=== PATIENT | female | born 1970 | race Caucasian/White ===

== ENCOUNTER 2020-06-22 06:54 | Outpatient (NON) | payer OTHER, SELFPAY ==
[2020-06-23 13:08] LABS: SARS-CoV-2 RNA PCR Negative
== END 2020-06-22 06:55 ==
PROVIDERS: PCP Family Medicine; Visit Provider Nurse Practitioner Family
DX: Z20.828 Contact with and (suspected) exposure to other viral communicable diseases (principal)
CPT/HCPCS: 87635; C9803; U0003

== ENCOUNTER 2021-10-06 13:59 | Outpatient (CLI) | payer OTHER, SELFPAY ==
--- NOTE | ~2021-10-06 | XR_ITS ---
XR chest 2V DATE: 10/06/2021 14:50 INDICATION: Shortness of breath TECHNIQUE: PA and lateral views COMPARISON: None FINDINGS: Normal heart size. No hilar or mediastinal enlargement. There is discoid atelectasis or sca rring at the right lung base. No pulmonary infiltrate or consolidation, pleural effusion or pulmonary vascular congestion or pneumothorax. Levoscoliosis of the upper thoracic spine and dextroscoliosis of the lower thoracic spine. Status post cholecystectomy. IMPRESSION: No active cardiopulmonary disease Prominent scoliosis Status post cholecystectomy Reviewed, dictated and finalized at location B. ING CAREGIVER
--- NOTE | 2021-10-06 15:28 | WPDPFTINT ---
PFT Procedure Performed PFT Procedure Performed Spirometry with Pre/Post Bronchodilator Plethysmography (Lung Vol) Diffusing Cap (DLCO) Flow Vol Loop PFT Interpretation This is a pulmonary function test with pre and post-bronchodilator spirometry, plethysmography and diffusing capacity. The test was performed and results interpreted in accordance with the 2019 and 2005 ATS/ERS Task Force guidelines respectively using the Global Lung Function Initiative-2012 reference equations. Patient demonstrated good effort and cooperation. Reproducibility criteria were met. The quality of the pre bronchodilator spirometry maneuver was Grade A and post bronchodilator spirometry maneuver was Grade A. Findings: Spirometry:There is decreased maximal expiratory airflow at all lung volumes with concave expiratory flow tracing. The contour the inspiratory flow tracing is normal. The pre bronchodilator FVC Is 3.47 L, 100% predicted. The pre bronchodilator FEV1 is 2.36 L, 85% predicted. The pre bronchodilator FEV1:FVC ratio 68%. The post bronchodilator FVC is 3.70 L, representing a 6% increase. The post bronchodilator FEV1 is 2.62 L, representing an 11% increase. The post bronchodilator FEV1:FVC ratio is 71%. Plethysmography: The total lung capacity is 6.49 L, 125% predicted. The functional residual capacity is 3.83 L, 131% predicted. The residual volume is 2.83 L, 149% predicted. Diffusing capacity: The DLCO unadjusted for hemoglobin is 19.2, 84% predicted. The diffusing capacity adjusted for alveolar volume is 3.68, 82% predicted. Impression: There is a mild obstructive abnormality with a normal FEV1 and without significant improvement after inhaling a single dose of albuterol. The increase in residual volume is consistent with air trapping from an obstructive abnormality. Hyperinflation is present is demonstrated by the increase in total lung capacity and is consistent with an obstructive abnormality. The diffusing capacity is normal. unadjusted for hemoglobin is moderately decreased and normalizes when adjusted for alveolar volume. Impression: There is a moderately severe restrictive ventilatory abnormality. The spirometry is normal without evidence of an obstructive abnormality. There is no significant improvement after inhaling a single dose of albuterol. The diffusing capacity unadjusted for hemoglobin is moderately decreased and normalizes when adjusted for alveolar volume. There are no prior studies for comparison
== END 2021-10-06 14:00 | disposition home or self-care (01) ==
PROVIDERS: PCP Family Medicine; Visit Provider Nurse Practitioner Family
DX: J45.909 Unspecified asthma, uncomplicated (principal); R06.02 Shortness of breath; R05.9 Cough, unspecified; Z90.49 Acquired absence of other specified parts of digestive tract; M41.9 Scoliosis, unspecified; R94.2 Abnormal results of pulmonary function studies
CPT/HCPCS: 71046; 94060; 94726; 94729

== ENCOUNTER 2022-09-03 14:47 | Outpatient (CLI) | payer OTHER, SELFPAY ==
--- NOTE | ~2022-09-03 | XR_ITS ---
EXAMINATION: XR chest 2V 09/03/2022 15:00 INDICATION: Moderate persistent asthma. PROCEDURE: 2 view chest COMPARISON: 10/06/2021 FINDINGS: The lungs are clear. The cardiomediastinal silhouette is within normal limits. There are no pleural effusions. There is no pneumothorax suspected. There is scoliosis. IMPRESSION: 1: NO ACUTE CARDIOPULMONARY DISEASE. Reviewed, dictated and finalized at location A. ENT PLANT TREATER
== END 2022-09-03 14:48 | disposition home or self-care (01) ==
PROVIDERS: PCP Family Medicine; Visit Provider Physician Assistant
DX: R05.9 Cough, unspecified (principal); J45.40 Moderate persistent asthma, uncomplicated
CPT/HCPCS: 71046

== ENCOUNTER 2023-06-28 09:30 | Outpatient (CLI) | payer OTHER, SELFPAY ==
--- NOTE | ~2023-06-28 | XR_ITS ---
Clinical Indication: Cough PA and lateral views of the chest: Comparison: 09/03/2022 Findings: The lungs are clear, without evidence of focal consolidation or pleural effusion. Cardiome diastinal silhouette is within normal limits. Bones and soft tissues are unremarkable. Impression: Normal chest. Reviewed, dictated and finalized at location . DAMAGE TRAINEE Impression: Normal chest.
[2023-06-28 11:09] LABS: Influenza A QL RT-PCR Negative (Negative); Influenza B QL RT-PCR Negative (Negative); SARS-CoV-2 RNA PCR Negative (Negative)
== END 2023-06-28 09:31 | disposition home or self-care (01) ==
LOC: ANHIMG 09:33
PROVIDERS: PCP Family Medicine; Visit Provider Nurse Practitioner Family
DX: R05.9 Cough, unspecified (principal); R06.00 Dyspnea, unspecified
CPT/HCPCS: 71046; 87636

== ENCOUNTER 2024-04-08 15:51 | Outpatient (CLI) | payer OTHER, SELFPAY ==
--- NOTE | ~2024-04-08 | XR_ITS ---
EXAMINATION: XR chest 2V 04/08/2024 16:06 INDICATION: Dyspnea PROCEDURE: 2 view chest COMPARISON: 06/28/2023 FINDINGS: The lungs are clear. The cardiomediastinal silhouette is within normal limits. There are no pleural effusions. There is no pneumothorax suspected. There is scoliosis. IMPRESSION: 1: NO ACUTE CARDIOPULMONARY DISEASE. Reviewed, dictated and finalized at location B.
[2024-04-08 16:59] LABS: Influenza A QL RT-PCR Negative (Negative); Influenza B QL RT-PCR Negative (Negative); RSV RNA, RT-PCR Negative (Negative); SARS-CoV-2 RNA PCR Positive (Negative)
== END 2024-04-08 15:52 | disposition home or self-care (01) ==
PROVIDERS: PCP Family Medicine; Visit Provider Nurse Practitioner Family
DX: R05.9 Cough, unspecified (principal); R06.09 Other forms of dyspnea; R06.00 Dyspnea, unspecified; U07.1 COVID-19
CPT/HCPCS: 71046; 87637

== ENCOUNTER 2024-11-25 14:36 | Outpatient (CLI) | payer OTHER, SELFPAY ==
--- OUTSIDE RECORDS SUMMARY | 2024-11-25 16:15 | XMS_ITS | Data Portability ---
Author Organization [facility] Address [address] [place] [place] [address] Care Team Providers Care Laundry Pricing Clerk Name Role Phone CRUZ DESAI Manager Of Production Unavailable Assessment No assessment recorded. Plan of Treatment Reminders Order Date Submit Date Provider Last Modified By Organization Details Last Modified Time Details Appointments None recorded. Lab TSH + free T4, serum 2021 022 [facility] [address] [place], [place] [address]marily Rolin, [address], [place], [address], 08:19:34 prolactin , serum 2021 022 TUNICA ANTONINO, [address] [place] [address], [place] [address], [place], [address], 08:19:36 lh + FSH, serum 2021 022 TUNICA ANTONINO, [address] [place] [address], [place] [address], [place], [address], 08:19:35 estradiol , serum 2021 022 [facility]ICA ANTONINO, [facility] Orlin, [address], [place], [address], 08:19:36 cytology report, thin prep, smear or scraping, cervical or vaginal 2021 022 TUNICA ANTONINO, [address] [place] [address] [address], [address], [place], [address], 2 15:09:08 CT + NG + TV, DNA, urine/swa b 2018 019 [facility], [address], [address], [place], [address], 9 06:20:43 CT + NG + TV, DNA, urine/swa b 2016 017 [facility] ([facility] [address] [place], [address], 7 08:30:00 Referral None recorded. Procedures None recorded. Surgeries None recorded. Imaging MAMMO, screening , bilateral [address] [facility] Patient Access Centralized Scheduling, Centralized Scheduling, [address] [place], [address], 5 04:19:43 MAMMO, screening , digital, bilateral [address] Patient Access Centralized Scheduling, Centralized Scheduling, [address] [place], [address], 2 15:33:45 MAMMO, screening , digital, bilateral - birad 1 in SEP 20172018 019 ALBERTA Not available 9 09:02:03 MAMMO, screening , digital, bilateral 2016 017 [facility] Not available 8 02:37:45 Medication Orders nystatin 100,000 unit/gram topical powder 2021 [facility], [facility] [place], [address], 5 11:24:36 NuvaRing 0.12 mg-0.015 mg/24 hr vaginal 2018 019 [email or web address] [facility], [address] [facility], [place], [address], 5 11:24:29 fluoxetin e 40 mg capsule 2018 019 INTERFACE [facility], [address] [place], [address], 9 16:47:11 NuvaRing 0.12 mg-0.015 mg/24 hr vaginal 2016 017 [email or web address] Not available 5 11:24:29 Patient TargetsNo targets recorded. 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 last exam 1-2 years. no bleeding, no pain, no discharge. PAP history = no prior abnormal . pap neg, hpv neg in 2015 STD history = no prior Menses = monthly, regular Contraception = nuvaring Mammogram = normal in 2016 EXAM vital - normal gen - no distress neck - no mass breast no exam chest - rrr cta abd - soft nontender back - no pain vulva - no lesions, no discharge vagina - no lesions, no discharge cervix - normal, nontender bimanual - no mass, nontender PLAN annual jewelry polisher exam PAP not due at this time STD cervix swab collected mammogram - screening requested recommend calcium/vitamin D FLU VACCINE - given today RX renew NUVARING LABS none follow up annual jewelry polisher exam DO migdalia MARCELO Not available 08/05/2017 16:52:28 01/23/2018 [id number] pt used tampon today , current menses, went swimming cannot recall removing tampon, cannot detect in vagina pt worried tampon may be retained no pain, no discharge, no odor EXAM normal vitals general - no distress abd - soft nontender vulva - no lesions, no discharge vagina - no lesions, no discharge, no bleeding. 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 last exam 2 years. no bleeding, no pain, no discharge. PAP history = no prior abnormal . pap neg, hpv neg in 2016 STD history = no prior Menses = monthly, regular Contraception = nuvaring Mammogram = normal in 2016 discuss Nuvaring use for contraception and menses regulation pt age 48 , menses regular and short with Nuvaring discuss consideration to discontinue patient desires to continue at this time for both contraception and menses regulation occasional mild hot flushes discuss rx Fluoxetine Started several years ago for depression with marital stressors currently denies any significant social stressors or depression symptoms discuss consideration to stop and follow for symptoms discuss options to taper with half dose or every other day and monitor refill rx given at this time. EXAM vital - normal gen - no distress neck - no mass breast no pain, no mass, no lesions. patient reports mild tender to upper outer left - no mass abd - soft nontender back - no pain vulva - no lesions, no discharge vagina - no lesions, no discharge cervix - normal, nontender bimanual - no mass, nontender PLAN annual jewelry polisher exam PAP not due at this time STD cervix swab collected mammogram - screening requested recommend calcium/vitamin D FLU VACCINE - none RX renew NUVARING LABS none follow up annual jewelry polisher exam DO migdalia MARCELO Not available 11/24/2018 16:52:37 03/30/2022 [id number] A healthy lifestyle: care instructions [email or web address] Not available 03/31/2022 11:55:07 09/21/2024 [id number] learning about menopause [email or web address] Not available 09/21/2024 12:20:00 hot flashes duri ng menopause: care instructions [email or web address] Not available 09/21/2024 12:20:00 Reason for Referral None Reported. Results Created Date Observation Date Name Description Value Unit Range Abnormal Flag Note LastModifiedBy Organization Detail LastModifiedTime 08/05/20 17 08/07/2017 CT + NG + TV, DNA, urine /swab chlamydia by MG Negati ve negati ve Not Available [facility] ([facility]) [address] [facility], [place], [address], 08/07/2017 08:30:00 08/05/20 17 08/07/2017 CT + NG + TV, DNA, urine /swab gonococcus by MG Negati ve negati ve Not Available [facility] ([facility]) [address] [place], [address], 08/07/2017 08:30:00 08/05/20 17 08/07/2017 CT + NG + TV, DNA, urine /swab trich vag by MG Negati ve negati ve Not Available [facility] ([facility]) [address] [place], [address], 08/07/2017 08:30:00 11/25/19 19 11/26/2018 CT + NG + TV, DNA, urine /swab chlamydia by MG Negati ve negati ve Not Available [facility] ([facility]) [address] [place] [address], [address], 11/26/2018 06:20:43 11/25/19 19 11/26/2018 CT + NG + TV, DNA, urine /swab gonococcus by MG Negati ve negati ve Not Available [facility] ([facility]) [address] [place], [address], 11/26/2018 06:20:43 11/25/19 19 11/26/2018 CT + NG + TV, DNA, urine /swab trich vag by MG Negati ve negati ve Not Available [facility] ([facility]) [address] [place], [address], 11/26/2018 06:20:43 03/30/20 22 03/31/2022 TSH+F REE T4 TSH 10.400 uIU/m L 0.450- 4.500 above high normal Not Available [facility] ([facility]) [address] [place], [address], 03/31/2022 08:19:34 03/30/20 22 03/31/2022 TSH+F REE T4 T4,free(dire ct) 0.85 NG/dL 0.82-1 .77 Not Available [facility] ([facility]) [address] [place], [address], 03/31/2022 08:19:34 03/30/20 22 03/31/2022 FSH AND LH LH 9.7 mIU/m L Adult Femal e: Folli cular phase 2.4 - 12.6 Ovula tion phase 14.0 - 95.6 Lutea l phase 1.0 - 11.4 Postm enopa usal 7.7 - 58.5 Not Available [facility] ([facility]) [address] [place], [address], 03/31/2022 08:19:35 03/30/2003/31/2022 FSH AND LH FSH 11.8 mIU/m L Adult Femal e: Folli cular phase 3.5 - 12.5 Ovula tion phase 4.7 - 21.5 Lutea l phase 1.7 - 7.7 Postm enopa usal 25.8 - 134.8 Not Available [facility] ([facility]) [address] [place], [address], 03/31/2022 08:19:35 03/30/2003/31/2022 PROLA CTIN prolactin 32.1 NG/mL 4.8-23 .3 above high normal Not Available [facility] ([facility]) [address] [place], [address], 03/31/2022 08:19:35 03/30/2003/31/2022 ESTRA DIOL estradiol 162.0 pg/mL Adult Femal e: Folli cular phase 12.5 - 166.0 Ovula tion phase 85.8 - 498.0 Lutea l phase 43.8 - 211.0 Postm enopa usal <6.0 - 54.7 Pregn henny 1st trime ster 215.0 - >4300 .0 Radha ECLIA metho dolog y Not Available [facility] ([facility]) [address] [place], [address], 03/31/2022 08:19:36 03/30/20 22 04/03/2022 IGP, APTIM A HPV, RFX 16/18 ,45 HPV aptima Negati ve negati ve This nucle ic acid ampli ficat ion test detec ts fourt een high- risk HPV types (16,1 8,31, 33,35 ,39,4 5,51, 52,56 ,58,5 9,66, 68) witho ut diffe renti ation . Not Available [facility] ([facility]) [address] [facility], [place], [address], 04/04/2022 15:09:08 03/30/20 22 04/04/2022 IGP, APTIM A HPV, RFX 16/18 ,45 diagnosis: Commen t NEGAT GRISEL FOR INTRA EPITH ELIAL LESIO N OR MALIG VONDA . SPECI MEN REPRO CESSE D FOR INTER PRETA TION USING GLACI AL ACETI C ACID (GAA) . Not Available [facility] ([facility]) [address] [facility], [place], [address], 04/04/2022 15:09:08 03/30/20 22 04/04/2022 IGP, APTIM A HPV, RFX 16/18 ,45 specimen adequacy: Commen t Satis facto ry for evalu ation . Endoc ervic al and/o r squam ous metap lasti c cells (endo cervi pop compo nent) are prese nt. Areas of parti ally obscu ring blood are prese nt. Not Available [facility] ([facility]) [address] [facility], [place], [address], 04/04/2022 15:09:08 03/30/20 22 04/04/2022 IGP, APTIM A HPV, RFX 16/18 ,45 clinician provided ICD10: Commen t Z12.4 Not Available [facility] ([facility]) [address] [facility], [place], [address], 04/04/2022 15:09:08 03/30/20 22 04/04/2022 IGP, APTIM A HPV, RFX 16/18 ,45 performed by: Adri Hill (ASCP ) Not Available [facility] ([facility]) [address] [place], [address], 04/04/2022 15:09:08 03/30/20 22 04/04/2022 IGP, APTIM A HPV, RFX 16/18 ,45 . . Not Available [facility] ([facility]) [address] [place], [address], 04/04/2022 15:09:08 03/30/20 22 04/04/2022 IGP, APTIM A HPV, RFX 16/18 ,45 note: Thu maldonado The Pap smear is a scree shaniqua test desig flaco to aid in the detec tion of soniya ligna nt and malig nant condi tions of the uteri ne cervi x. It is not a diagn ostic proce dure and shoul d not be used as the sole means of detec ting cervi pop cance r. Both false -posi tive and false -nega tive repor ts do occur . Not Available [facility] ([facility]) [address] [facility], [place], [address], 04/04/2022 15:09:08 03/30/20 22 04/04/2022 IGP, APTIM A HPV, RFX 16/18 ,45 test methodology: Thu maldonado This liqui d based ThinP rep(R ) pap test was scree flaco with the use of an image guide joon jackson Not Available [facility] ([facility]) [address] [place], [address], 04/04/2022 15:09:08 09/30/19 18 09/24/2017 MAMMO , gladys mcgovern, digit al, bilat eral No observ ation record ed. [email or web address] Not Available 2017 16:00:17 10/10/19 18 09/24/2017 MAMMO , scree shaniqua, digit al, bilat eral No observ ation record ed. [email or web address] Not Available 2017 17:42:50 12/09/19 19 12/06/2018 MAMMO , scree shaniqua, digit al, bilat eral No observ ation record ed. [email or web address] Not Available 2018 12:03:42 09/21/19 25 10/21/2023 MAMMO , scree shaniqua, bilat eral No observ ation record ed. [email or web address] Not Available 09/21 11:59:12 09/21/19 25 10/28/2023 CT, abdom en + pelvi s, w/ contr ast No observ ation record ed. [email or web address] Not Available 09/21 11:59:24 Result Notes None recorded. 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 Procedures Surgical History Date Name Laterality Status Provider Name and Address Organization Details Recorded Time 8 Most Recent Mammogram completed Jenae Cummings [place] 01/23/2018 17:20:28 6 Date of Last Pap Smear completed Alix Maldonado MA [place] [facility] 08/05/2017 16:13:47 Imaging Results Imaging Date Name Status LastModified by [facility] Details LastModified Time 09/24/2017 MAMMO, screening, digital, bilateral completed [email or web address] Information not available 09/30/2017 16:00:17 09/24/2017 MAMMO, screening, digital, bilateral completed Bruin Brake [email or web address] Information not available 10/10/2017 17:42:50 12/06/2018 MAMMO, screening, digital, bilateral completed Bruin Brake Cables[facility] Information not available 12/09/2018 12:03:42 10/21/2023 MAMMO, screening, bilateral completed [email or web address] Information not available 09/21/2024 11:59:12 10/28/2023 CT, abdomen + pelvis, w/ contrast completed [email or web address] Information not available 09/21/2024 11:59:24 Procedure Notes None recorded. Medical Equipment None Reported. Allergies No known drug allergies Medications Name Sig Start Date Stop Date Status Note LastModified by Organization Details LastModified Time fluoxetine 40 mg capsule TAKE 1 CAPSULE DAILY active Not Available Not Available No t Available amoxicillin 500 mg capsule TAKE 1 CAPSULE BY MOUTH EVERY 12 HOURS 09/21 completed Not Available Not Available Not Available prednisone 10 mg tablet PLEASE SEE ATTACHED FOR DETAILED DIRECTION S active Not Available Not Available No t Available atorvastati n 10 mg tablet 09/21 completed Not Available Not Available Not Available azithromyci n 250 mg tablet 01/23 completed Not Available Not Available Not Available indapamide 2.5 mg tablet 11/24 completed Not Available Not Available Not Available prednisone 20 mg tablet TAKE 1 TABLET BY MOUTH TWICE A DAY FOR 5 DAYS 09/21 completed Not Available Not Available Not Available potassium chloride ER 20 mEq tablet,exte nded release(par t/cryst) active Not Available Not Available Not Available famotidine 20 mg tablet TAKE 1 TABLET BY MOUTH TWICE A DAY 09/21 completed Not Available Not Available Not Available ciprofloxac in 0.3 % eye drops 01/23 completed Not Available Not Available Not Available benzonatate 100 mg capsule 11/24 completed Not Available Not Available Not Available doxycycline monohydrate 100 mg capsule TAKE 1 CAPSULE BY MOUTH EVERY 12 HOURS 09/21 completed Not Available Not Available Not Available oseltamivir 75 mg capsule 11/24 completed Not Available Not Available Not Available lisinopril 10 mg tablet active Not Available Not Available Not Available prednisone 50 mg tablet 11/24 completed Not Available Not Available Not Available Synthroid 75 mcg tablet active Not Available Not Available Not Available indapamide 1.25 mg tablet 09/21 completed Not Available Not Available Not Available Synthroid 50 mcg tablet 09/21 completed Not Available Not Available Not Available codeine 10 mg-guaifene sin 100 mg/5 mL oral liquid TAKE 5 ML BY MOUTH ONCE 09/21 completed Not Available Not Available Not Available epinephrine 0.3 mg/0.3 mL injection, auto-inject or INJECT 1 PEN DIRECTED INTRAMUSC ULARLY ONCE FOR ANAPHYLAX IS active Not Available Not Available No t Available levofloxaci n 750 mg tablet 11/24 completed Not Available Not Available Not Available methylpredn isolone 4 mg tablets in a dose pack 11/24 completed Not Available Not Available Not Available hydrocodone 10 mg-chlorphe niramine 8 mg/5 mL oral susp extend.rel 12hr 11/24 completed Not Available Not Available Not Available albuterol sulfate HFA 90 mcg/actuati on aerosol inhaler INHALE 1 PUFF EVERY 4 HOURS NEEDED FOR SHORTNESS OF BREATH OR WHEEZING active Not Available Not Available No t Available ondansetron 4 mg disintegrat ing tablet TAKE 1 TABLET BY MOUTH EVERY 8 HOURS NEEDED FOR NAUSEA AND VOMITING 09/21 completed Not Available Not Available Not Available cefdinir 300 mg capsule TAKE 1 CAPSULE (300 MG) BY MOUTH EVERY 12 HOURS FOR 10 DAYS 09/21 completed Not Available Not Available Not Available fluoxetine 20 mg capsule 09/21 completed Not Available Not Available Not Available fluticasone propionate 50 mcg/actuati on nasal spray,suspe nsion active Not Available Not Available Not Available NuvaRing 0.12 mg-0.015 mg/24 hr vaginal INSERT 1 RING VAGINALLY EVERY MONTH 09/21 completed Not Available Not Available Not Available ciprofloxac in 0.3 %-dexametha sone 0.1 % ear drops,suspe nsion INSTILL 4 DROPS INTO RIGHT EAR TWICE A DAY FOR 7 DAYS 09/21 completed Not Available Not Available Not Available Nyamyc 100,000 unit/gram topical powder APPLY TO THE AFFECTED AREA(S) BY TOPICAL ROUTE 2 TIMES PER DAY 09/21 completed Not Available Not Available Not Available Symbicort 160 mcg-4.5 mcg/actuati on HFA aerosol inhaler active Not Available Not Available Not Available Durezol 0.05 % eye drops 11/24 completed Not Available Not Available Not Available Ilevro 0.3 % eye drops,suspe nsion 11/24 completed Not Available Not Available Not Available ProAir RespiClick 90 mcg/actuati on breath activated active Not Available Not Available No t Available Vitals Date Recorded Body weight Systolic blood pressure Diastolic blood pressure Provider Name and Address Organization Details Last Updated DateTime 08/05/2017 92007.52 g 130 mm[Hg] 86 mm[Hg] Alix Maldonado MA [facility] 08/05/2017 16:15:23 Date Recorded Body height Body mass index (BMI) Body weight Systolic blood pressure Diastolic blood pressure Provider Name and Address Organization Details Last Updated DateTime 01/23/2018 165.1 cm 27.6 kg/m2 95916.33 g 158 mm[Hg] 100 mm[Hg] Jenae Cummings MA [facility] 8 17:21:52 Date Recorded Body height Body mass index (BMI) Body weight Systolic blood pressure Diastolic blood pressure Provider Name and Address Organization Details Last Updated DateTime 11/24/2018 165.1 cm 27.5 kg/m2 45773.17 g 132 mm[Hg] 84 mm[Hg] Solange Montgomery LPN [facility] 9 16:13:52 Date Recorded Body height Body mass index (BMI) Body weight Systolic blood pressure Diastolic blood pressure Provider Name and Address Organization Details Last Updated DateTime 03/30/2022 165.1 cm 27.7 kg/m2 82128.52 g 132 mm[Hg] 74 mm[Hg] Iman Hough MA [facility] 2 15:14:55 Date Recorded Body height Body mass index (BMI) Body weight Heart rate Systolic blood pressure Diastolic blood pressure Provider Name and Address Organization Details Last Updated DateTime 5 165.1 cm 28.5 kg/m2 14839 g 79 /min 148 mm[Hg] 94 mm[Hg] Iman Hough MA [facility] 5 11:29:35 Social History Question Answer Notes LastModified by Organizat ion Details LastModified Time Tobacco Smoking Status Never Smoker Maddie patel [facility] 10/13/2015 16:13:09 What Is Your Level Of Alcohol Consumption? Occasional [email or web address] Information not available 10/13/2015 Are You Blind Or Do You Have Difficulty Seeing? No Information not available 03/30/2022 Is Blood Transfusion Acceptable In An Emergency? Yes [email or web address] Information not available 10/13/2015 What Is Your Level Of Caffeine Consumption? Heavy [email or web address] Information not available 10/13/2015 How Much Tobacco Do You Chew? None [email or web address] Information not available 10/13/2015 Are You Currently Employed? Yes [email or web address] Information not available 10/13/2015 Are You Deaf Or Do You Have Serious Difficulty Hearing? No Information not available 03/30/2022 What Type Of Diet Are You Following? REGULAR [email or web address] Information not available 10/13/2015 Which Illicit Or Recreational Drugs Have You Used? None [email or web address] Information not available 10/13/2015 Do You Or Have You Ever Used E-cigarettes Or Vape? 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 Alone [email or web address] Information not available 10/13/2015 What Was The Date Of Your Most Recent Tobacco Screening? 09/21/2024 Information not available 09/21/2024 How Many Children Do You Have? 3 [email or web address] Information not available 10/13/2015 Performs Monthly Self-breast Exam? Yes [email or web address] Information no t available 10/13/2015 Do You Use Protection During Sex? No Information not available 10/13/2015 What Is Your Relationship Status? [email or web address] Information not available 10/13/2015 Do You Use Your Seat Belt Or Car Seat Routinely? Yes Information not available 03/30/2022 Seat Belts Used Routinely Yes Information not available 10/13/2015 Are You Sexually Active? Yes [email or web address] Information not available 10/13/2015 Do You Have Smoke And Carbon Monoxide Detectors In Your Home? Yes Information not available 03/30/2022 Are You Passively Exposed To Smoke? Yes Information no t available 03/30/2022 Do You Or Have You Ever Used Smokeless Tobacco? Never Used Smokeless Tobacco Information not available 09/21/2024 How Much Tobacco Do You Smoke? No [email or web address] Information not available 10/13/2015 General Stress Level Low [email or web address] Information not available 10/13/2015 Do You Use Any Illicit Or Recreational Drugs? No Information not available 03/30/2022 Do You Use Sunscreen Routinely? Yes [email or web address] Information not available 10/13/2015 Has Tobacco Cessation Counseling Been Provided? Yes Information not available 03/30/2022 On What Date Was Tobacco Cessation Counseling Provided? 09/21/2024 Information not available 09/21/2024 Do You Or Have You Ever Used Any Other Forms Of Tobacco Or Nicotine? No Information not available 03/30/2022 Sex: Female Functional Status Question Answer Note LastModified by Organizat ion Details LastModified Time Are you able to care for yourself? Yes Information not available 03/30/2022 What is your exercise level? Occasional [email or web address] Information not available 10/13/2015 Mental Status None recorded. Family History Relationship Description Onset Age of this Age Resolved Age Notes LastModified by Organization Details LastModified Time Mother Hypertensive disorder [email or web address] Not available 2015 16:13:09 Mother Hypercholest erolemia [email or web address] Not available 2015 16:13:09 Mother Malignant tumor of vagina Not available 2015 16:13:09 Paternal Grandmother Diabetes mellitus Not available 2015 16:13:09 Medical History Condition Response High Blood Pressure Y Headaches/Migraines Y Thyroid Problems Y Asthma Y Gynecological History Statement/Question Response Abnormal Pap N Flow Light Date of LMP 03/25/2022 On BCP's at Conception? N STIs/STDs N HPV Vaccine N Duration of Flow (days) Most Recent Mammogram 09/24/2017 Age at Menarche 11 Current Control Method Menopause Age at First Child 28 If Post Menopausal, Age at Menopause 53 Frequency of Cycle (Q days) 26 Sexually Active? Y Menses Monthly N Date of Last Pap Smear 10/14/2015 Sexual Problems? N LMP Definite Obstetrics History GPAL:G 2 P 3 0 0 3 Type Value Multiple Births 1 Full Term 3 Induced 0 Spontaneous 0 Premature 0 Living 3 Ectopics 0 Total 2 Immunizations Vaccine Type Date Status Note Provider Nam e and Address Organization Details Recorded Time Influenza, split virus, quadrivalent, preservative 7 completed Not Available [facility] 09/05/2019 02:46:04 Past Encounters Encounter ID Performer Location Encounter Start Date Encounter Closed Date Diagnosis/Indication Diagnosis SNOMED-CT Code Diagnosis ICD10 Code Diagnosis Note [id number] Riky Ortiz MD [facility] [place] (INFORMATION [employer] SECURITY OFFICER) [address] [place] [phone] 10/13/2015 15:26:14 10/17/2015 12:27:39 Contraception care management 946142846 Z30.9 Gynecologi c examination [id number] Z01.920 [id number] Aubrey Cho DO [facility] (INFORMATION SYSTEMS SECURITY OFFICER) [address] [place] [address] [phone] 8 08/05/2017 15:50:17 08/16/2017 13:05:30 Contraception care management [id number] Z30.9 Gynecologi c examination [id number] Z01.419 Administra tion of influenza vaccine [id number] Z23 [id number] Aubrey Cho DO [facility] [place] (INFORMATION SYSTEMS SECURITY OFFICER) [address] [place] [address] [phone] 8 01/23/2018 16:29:05 02/03/2018 16:30:18 Vaginal discharge [id number] N89.8 [id number] Aubrey Cho DO [facility] [place] (INFORMATION SYSTEMS SECURITY OFFICER) [address] [place] [address] [phone] 8 11/24/2018 16:01:59 11/25/2018 09:36:57 Gynecologic examination [id number] Z01.419 Contraception care [id number] [id number] Z30.40 Depressive disorder 3548 9007 F32.89 [id number] KRISTAL SPENCER [facility] [place] (INFORMATION SYSTEMS SECURITY OFFICER) [address] [place] [address] [phone] 8 03/30/2022 14:05:51 04/04/2022 09:54:30 Gynecologic examination [id number] Z01.419 Normal gynecologi c exam today.Cerv ical cancer screening: Last Pap 10/14/2015- -NILM, -hrHPV. Updated todayBreas t cancer screening: Reviewed recommenda tions for initiation at age 40 with annual screening. Discussed SBEColonos copy: n/aSTI screening: routine nuswab, treat as needed. Safe sex practices discussed. Contracept ion:Diet/e xercise: Counseled regarding importance of physical activity, healthy diet and appropriat e calcium intake.RTC in 1yr Screening for malignant neoplasm of cervix [id number] Z12.4 -Last pap 10/14/2015- --NILM, -hrHPV. Updated today Screening for malignant neoplasm of breast [id number] Z12.39 -Last mammogram 12/06/2018- -BIRADS 1-Pt noted bilateral nipple tenderness with last menses. Resolved with onset of bleeding. No further symptoms. Discussed this is likely due to hormonal changes.-C BE unremarkab le.-Mammog alec order provided today Perimenopausal state 400 [id number] 30320 Z78.0 -Pt with spontaneou s return of menses after 6 months of amenorrhea . Menses x 3 months. Developed nipple tenderness with last menses, resolved with onset of bleeding.- Pt notes history of thyroid disease. States she had TSH checked around December and everything was normal . PE: unremarkab le. -Discussed menopause and perimenopa usal changes. Prolonged amenorrhea with return of menses likely due to late phase or perimenopa usal change.-Di scussed nipple tenderness likely due to hormonal changes.-L abs ordered. Candidiasis of skin 4988 3006 B37.2 -Slight vaginal itching. Notes several rounds of steroids due to asthma. Also wears pads 2/2 stress incontinen ce with coughing. PE: vulvar erythema with few satellite lesions. -Possible lisbeth vs contact dermatitis .-Will trial nystatin powder Overweight [id number] E66 .3 BMI 27.7 [id number] KRISTAL SEPNCER [facility] [place] (INFORMATION SYSTEMS SECURITY OFFICER) [address] [facility] [place] [address] 09/21/2024 10:59:06 09/23/2024 16:05:40 Gynecologic examination [id number] Z01.419 Declines pelvic exam. Breast exam unremarkab le.Cervica l cancer screening: Last Pap 03/30/22--N ILM, -hrHPV. Due 2027Breast cancer screening: Reviewed recommenda tions for initiation at age 40 with annual screening. Discussed SBEColonos copy: has outside PCPSTI screening: none, pt declines Safe sex practices discussed. Contracept ion: menopauseD iet/exerci se: Counseled regarding importance of physical activity, healthy diet and appropriat e calcium intake.RTC in 1yr Screening mammography of bilateral breasts [id number] 58639 Z12.31 -Last mammogram 10/21/23--BI RADS 1-No FMHx breast cancer. No breast complaints .-CBE unremarkab le-Mammogr am order provided Menopause [id number] N95. 1 -LMP 07/2023. Reports mood changes and occassiona l hot flashes-On fluoxetine and notes improvemen t.-Not interested in alternativ e medication s at this time.-Disc ussed symptoms a/w menopause Health Concerns Section Related Observation LastModified by Organization Detai ls LastModified Time None Recorded Concern Status LastModified by Organization Details LastModified Time None Recorded Advance Directives Directive None Recorded Payers Encounter Date Sequence Insurance Name Policy Number Policy Crabtree Covered Member ID Crabtree Member ID Guarantor Name 08/05/2017 1 [employer] (POS) [id number] [facility] [id number] [facility] 01/23/2018 1 [employer] (POS) [id number] [facility] [id number] [facility] 11/24/2018 1 [employer] (POS) [id number] [facility] [id number] [place] [address] 03/30/2022 1 [employer] (POS) [id number] [facility] [id number] [place] [address] 09/21/2024 1 [employer] (POS) [id number] [facility] [id number] [facility] Notes Date Note Type Note Provider Name and Address Organization Details Recorded Time 03/30/2022 text/html Annual GYNReport ed bypatient.Menstrua l cycle:Irregular cycle intervals Urinary symptoms:No hematuria; No incontinence Vulva:No genital lesion Vagina:Normal vaginal discharge;Vaginal itching Breast:No breast pain; No breast lump; No nipple discharge Sexual complaints:No sexual complaints; No pain during intercourse; Normal libido Menopausal Symptoms:No menopausal symptoms; Normal vaginal lubrication Psychological symptoms:No depression; No anxiety Preventive measures:Encourage self breast examination; Encourage regular exercise; Encourage regular mammograms starting age 40; Followed with Q3 year pap smear and high risk HPV typing 51 yo with PMHx of thyroid disease presents for annual wwe. Last pap 10/14/2015. Last mammogram 12/06/2018. Pt c/o irregular menses. Pt thought she had gone through menopause as menses stopped in 07/2021. However, menses returned in 01/2022 and have been regular in 02/2022 and 03/2022. Pt notes that with most recent menses she developed nipple tenderness. Notes irritation wearing a bra due to fabric touching the nipple area. Denies tenderness elsewhere in the breast, states she had never had breast tenderness with menses previously. Tenderness resolved with onset of menses. Pt also notes mild vaginal itching. States she is asthmatic and has been on steroids several times recently. Pt also wears a pad as sometimes when coughing due to her asthma, she will leak urine. Denies discharge, dyspareunia, postcoital bleeding, or pelvic pain. Endorses intermittent night sweats that have improved. KRISTAL SPENCER Attn: [address]ing[address] [place], [address], [facility] 03/31/2022 11:55:25 09/21/2024 text/html Annual GYNReport ed bypatient.Menstrua l cycle:Postmenopaus al Urinary symptoms:No hematuria; No incontinence Vulva:No genital lesion Vagina:Normal vaginal discharge Breast:No breast pain; No breast lump; No nipple discharge; No FMHx breast cancer Sexual complaints:No sexual complaints; No pain during intercourse; Normal libido Menopausal Symptoms:Normal vaginal lubrication;Hot flashes(occassiona l) Preventive measures:Encourage self breast examination; Encourage regular exercise; Encourage no tobacco use; Encourage regular mammograms starting age 40 54 yo presents for annual wwe. Last pap 03/30/22. No hx abnormal. Last mammogram 10/2023. Denies any breast, vaginal, or urinary complaints. LMP >1 year ago. Reports increased mood changes and occassional hot flashes. Is on fluoxetine 40 mg and reports improvement. Not interested in other medications. KRISTAL SPENCER Attn: Accounting[address] [facility], [place], [address], [facility] 09/21/2024 12:20:49 OBGyn Episode No OBEpisode recorded.
--- OUTSIDE RECORDS SUMMARY | 2024-11-25 16:15 | XMS_ITS | Clinical Summary ---
Author Organization [facility] Address [address] [place] [address] Care Team Providers Care Enterprise Infrastructure Architect Name Role Phone Jimmy Newman MD Primary Care Provider Allergies No known active allergies Medications atorvastatin (LIPITOR) 10 mg tablet 12/04/2023 Active azelastine (ASTELIN) 137 mcg (0.1 %) nasal spray 11/08/2023 Active Symbicort 160-4.5 mcg/actuation inhaler 11/08/2023 Active FLUoxetine (PROzac) 40 mg capsule 01/24/2024 Active fluticasone propionate (FLONASE) 50 mcg/actuation nasal spray 01/24/2024 Active Synthroid 75 mcg tablet 12/10/2023 Active lisinopriL (PRINIVIL,ZESTRI L) 10 mg tablet 01/05/2024 Act jarad potassium gluconate 600 mg (99 mg) tablet Take by mouth Active Active Problems Problem Noted Date Diagnosed Date Sensorineural hearing loss (SNHL) of both ears 0 04/08/2024 Right chronic serous otitis media 02/03/2024 Tinnitus of right ear 02/03/2024 Conductive hearing loss of r ight ear with unrestricted hearing of left ear 02/03/2024 Surgical History Surgery Date Site/Laterality Comments CHOLECYSTECTOMY CATARACT EXTRACTION Medical History Medical History Date Comments Allergic rhinitis Asthma Cataracts, bilateral Hypertension Thyroid disease HL (hearing loss) Tinnitus Family History Medical History Relation Name Comments No Known Problems Father No Known Problems Mother Relation Name Status Comments Father Mother Social History Tobacco Use Types Packs/Day Years Used Date Smoking Tobacco: Never Smokeless Tobacco: Never Tobacco Cessation:Counseling Given: Not Answered Personal Safety Answer Date Recorded Have you ever been in or are you currently in a harmful physical or emotional relationship or is someone making you feel afraid or unsafe? Denies 10/28/2023 Comments No Sex and Gender Information Value Date Recorded Sex Assigned at Not on file Legal Sex Female 3:00 AM PROGRAM PROJECT MANAGER Gender Identity Not on file Sexual Orientation Not on file Obstetrics History Para Term AB IAB SAB Ectopic Multiple Livin g Live Births 2 2 2 Date Outcome GA Total Labor Labor/2nd/3rd Weight Sex Type Anes PTL Tova A1 A5 Name Clin Term Term Last Filed Vital Signs Vital Sign Reading Time Taken Comments Blood Pressure 132/75 10/28/2023 10:09 AM CDT Pulse 81 10/28/2023 10:09 AM CDT Temperature 36.5 C (97.7 F) 10/28/2023 10:09 AM CDT Respiratory Rate 18 08/07/2024 2:09 PM PROGRAM PROJECT MANAGER Oxygen Saturation 95% 10/28/2023 10:09 AM CDT Inhaled Oxygen Concentration - - Weight 74.8 kg (165 lb) 08/07/2024 2:09 PM PROGRAM PROJECT MANAGER Height 165.1 cm (5' 5 ) 08/07/2024 2:09 PM PROGRAM PROJECT MANAGER Body Mass Index 27.46 08/07/2024 2:09 PM PROGRAM PROJECT MANAGER Plan of Treatment Health Maintenance Due Date Last Done Comments Cervical Cancer Screening 1968 Colon Cancer Screening-Colonoscopy 1968 Depression Screening 1968 Hepatitis C Screening 1968 Hepatitis B Screening 1986 Regular Well Visit/Exam 18-64 1986 DTaP/Tdap/Td Vaccine (1 - Tdap) 01/04/2012 01/03/2012, 12/18/1996 Zoster Vaccine (1 of 2) 2018 Covid-19 Vaccine (3 - season) 2024 12/07/2020, 11/09/2020 Breast Cancer Screening-Mammogram 10/20/2024 10/21/2023, 06/09/2022, 12/06/2018, Additional history exists Influenza Vaccine (Season Ended) 2025 06/10/2019, 08/05/2017 Pneumococcal vaccine <65 Aged Out 01/06/2013 No longer eligible based on patient's age to complete this topic Procedures Procedure Name Priority Date/Time Associated Diagnosis Comments SCREENING MAMMOGRAM BILATERAL W VERONICA Schedule Routine, Read Routine (OP Routine) 10/21/2023 3:34 PM PROGRAM PROJECT MANAGER Screening mammogram, encounter for from Last 3 Months or Most Recently Relevant to Health Maintenance Results * Screening Mammogram Bilateral W Veronica (10/21/2023 3:34 PM PROGRAM PROJECT MANAGER) Anatomical Region Laterality Modality Breast Bilateral Mammography Impressions 10/21/2023 3:37 PM PROGRAM PROJECT MANAGER BI-RADS ATLAS category (overall): 1 - Negative There is no mammographic evidence of malignancy. A 1 year screening mammogram is recommended. The patient has been or will be contacted. We recommend annual screening mammography for women at average risk of breast cancer beginning at age 40, based on guidelines of the [employer] (ACR Practice Parameter for the Performance of Screening and Diagnostic Mammography) and [employer]. For women with and elevated risk of breast cancer, please refer to the ACR Practice Parameter for specific screening recommendations. The patient will be entered into a reminder system with a target due date of 1 year for her next screening exam. Narrative 10/21/2023 3:37 PM PROGRAM PROJECT MANAGER Screening Mammogram Bilateral W Veronica: 10/21/23 The study was acquired using full field digital technology and interpreted from soft copy. 2D digital mammographic views, as well as 3D digital tomosynthesis were performed in the CC and MLO projections. CLINICAL: Screening mammogram, encounter for. No relevant medical history has been documented for this patient. No known family history of breast cancer. COMPARISONS: 06/09/2022 Screening Mammogram Bilateral W Veronica 12/06/2018 Screening Mammogram Bilateral W Veronica 10/10/2017 Screening Mammogram Bilateral W Veronica BREAST TISSUE: The breasts have scattered areas of fibroglandular density. FINDINGS: There is no new suspicious finding in either breast on mammogram. us Self Screening Mammogram IMG MAMMO PROCEDURES Fi nal Result from Last 3 Months or Most Recently Relevant to Health Maintenance [facility] [address] [place] [id number] [employer] [place] [employer] HMO Care Teams Enterprise Infrastructure Architect Relationship Specialty Start Date End Date Jimmy Newman MD PCP - General Family Practice 06/06/22
--- OUTSIDE RECORDS SUMMARY | 2024-11-25 16:15 | XMS_ITS | Clinical Summary ---
Author Organization [facility] Care Team Providers Care Heel Splitter Name Role Phone Unavailable Primary Care Provider Unavailabl e Social History Tobacco Use Types Packs/Day Years Used Date Smoking Tobacco: Never Assessed Comments Unknown Sex and Gender Information Value Date Recorded Sex Assigned at Not on file Legal Sex Female 12:03 PM FITNESS CLUB MANAGER Gender Identity Not on file Sexual Orientation Not on file Plan of Treatment Health Maintenance Due Date Last Done Comments Hepatitis C Virus (HCV) Screening 1968 TdaP Immunization 1968 Hepatitis B Immunization (1 of 3 - 19+ 3-dose series) 1987 Pap Smear 1989 Cervical Cancer Screening (CCS) 1998 HPV/Cotest 1998 Colonoscopy 2013 Colorectal Cancer Screening 2013 Cologuard 2018 Immunochemical Fecal Occult Blood 2018 Mammogram 2018 Pneumococcal Immunization (5 0+ years) (2 of 2 - PCV) 2018 01/06/2013 Zoster Immunization (1 of 2) 2018 Influenza Immunization (#1) 04/19/202405/20, 08/05/2017 SARS-COV-2 Immunization ( - 2023- season) 2024 12/07/2020, 11/09/2020 Respiratory Syncytial Virus (RSV) Immunization (Adult) (1 - 1-dose 75+ series) 2043 DTaP/Tdap/Td Immunization Discontinued 2011, 12/18/1996 Pneumococcal Immunization Combined Discontinued 01/06/2013 Meningococcal Immunization (ACWY) Aged Out No longer eligible based on patient's age to complete this topic Rotavirus Immunization Aged Out No lo nger eligible based on patient's age to complete this topic
--- OUTSIDE RECORDS SUMMARY | 2024-11-25 16:15 | XMS_ITS | Referral Summary ---
Author Organization [facility] Address [address] [place] [address] Care Team Providers Care Buttonhole Maker Hand Name Role Phone Jimmy Newman MD Primary [...] with unrestricted hearing of left ear 02/03/2024 Social History Tobacco Use Types Packs/Day Years [...] on file Legal Sex Female 3:00 AM QUALITY CONTROL INSPECTOR HEADING Gender Identity Not on file Sexual Orientation Not on file Last Filed Vital Signs Vital Sign Reading Time Taken Comments Blood Pressure 132/75 10/28/2023 10:09 AM CDT Pulse 81 10/28/2023 10:09 AM CDT Temperature 36.5 C (97.7 F) 10/28/2023 10:09 AM CDT Respiratory Rate 18 08/07/2024 2:09 PM QUALITY CONTROL INSPECTOR HEADING Oxygen Saturation 95% 10/28/2023 10:09 AM CDT Inhaled Oxygen Concentration - - Weight 74.8 kg (165 lb) 08/07/2024 2:09 PM QUALITY CONTROL INSPECTOR HEADING Height 165.1 cm (5' 5 ) 08/07/2024 2:09 PM QUALITY CONTROL INSPECTOR HEADING Body Mass Index 27.46 08/07/2024 2:09 PM QUALITY CONTROL INSPECTOR HEADING Plan of Treatment Not on file Procedures Procedure Name Priority Date/Time Associated Diagnosis Comments SCREENING MAMMOGRAM BILATERAL W VERONICA Schedule Routine, Read Routine (OP Routine) 10/21/2023 3:34 PM QUALITY CONTROL INSPECTOR HEADING Screening mammogram, encounter for from Last 3 Months or Most Recently Relevant to Health Maintenance Results * Screening Mammogram Bilateral W Veronica (10/21/2023 3:34 PM QUALITY CONTROL INSPECTOR HEADING) Anatomical Region Laterality Modality Breast Bilateral Mammography Impressions 10/21/2023 3:37 PM QUALITY CONTROL INSPECTOR HEADING BI-RADS ATLAS category (overall): 1 - Negative There is no mammographic evidence of malignancy. A 1 year screening mammogram is recommended. The patient has been or will be contacted. We recommend annual screening mammography for women at average risk of breast cancer beginning at age 40, based on guidelines of the [place] [employer] (ACR Practice Parameter for the Performance of Screening and Diagnostic Mammography) and [place] [employer]. For women with and elevated risk of breast cancer, please refer to the ACR Practice Parameter for specific screening recommendations. The patient will be entered into a reminder system with a target due date of 1 year for her next screening exam. Narrative 10/21/2023 3:37 PM QUALITY CONTROL INSPECTOR HEADING Screening Mammogram Bilateral W Veronica: 10/21/23 The [...] Most Recently Relevant to Health Maintenance [address] [facility] [address] HMO Care Teams Buttonhole Maker Hand Relationship Specialty Start Date End Date Jimmy Newman MD PCP - General Family Practice 06/06/22
--- NOTE | 2024-11-25 18:05 | WPDPFTINT ---
PFT Procedure Performed PFT Procedure Performed Spirometry with Pre/Post Bronchodilator Plethysmography (Lung Vol) Diffusing Cap (DLCO) Flow Vol Loop PFT Interpretation This is a pulmonary function test with pre and post-bronchodilator spirometry, plethysmography and diffusing capacity. The test was performed and results interpreted in accordance with the 2019 and 2005 ATS/ERS Task Force guidelines respectively using the Global Lung Function Initiative-2012 reference equations. Patient demonstrated good effort and cooperation. Reproducibility criteria were met. The quality of the pre bronchodilator spirometry maneuver was Grade A and post bronchodilator spirometry maneuver was Grade A. Findings: Spirometry: The contour the inspiratory and expiratory flow tracing are normal. The pre bronchodilator FVC is 3.60 L, 106% predicted. The pre bronchodilator FEV1 is 2.52 L, 94% predicted. The pre bronchodilator FEV1: FVC ratio 70%. The post bronchodilator FVC is 3.70 L, representing a 3% increase. The post bronchodilator FEV1 is 2.66 L, representing a 5% increase. The post bronchodilator FEV1: FVC ratio 72%. Plethysmography: The total lung capacity is 6.88 L, 132% predicted. The functional residual capacity is 3.79 L, 129% predicted. The residual volume is 3.28 L, 168% predicted. The residual volume: Total lung capacity ratio is 48%. Diffusing capacity: The diffusing capacity unadjusted for hemoglobin and carboxyhemoglobin is 17.6, 78% predicted. The diffusing capacity adjusted for alveolar volume is 3.65, 82% predicted. In comparison to previous pulmonary function testing on 10/06/2021 the post bronchodilator FVC is unchanged from 3.70 L to 3.70 L. The post bronchodilator FEV1 is unchanged from 2.62 L to 2.66 L. The total lung capacity is unchanged from 6.49 L to 6.88 L. The functional residual capacity is unchanged from 3.83 L to 3.79 L. The residual volume for is unchanged from 2.83 L to 3.28 L. the residual volume: Total lung capacity ratio is unchanged from 44% to 48%. The diffusing capacity unadjusted for hemoglobin and carboxyhemoglobin is unchanged from 19.2 to 17.6. The diffusing capacity adjusted for alveolar volume is unchanged from 3.68 to 3.65. Impression: The spirometry is normal without evidence of an obstructive abnormality. There is no significant improvement after inhaling a single dose of albuterol. the total lung capacity is increased with a normal residual volume: Total lung capacity ratio consistent with large lungs. The diffusing capacity is normal. In comparison to previous pulmonary function testing on 10/06/2021 there has been no significant change in the FVC, FEV1, total lung capacity, functional residual capacity, residual volume, residual volume:Total lung capacity ratio, or the diffusing capacity. Clinical correlation is recommended.
== END 2024-11-25 14:37 | disposition home or self-care (01) ==
PROVIDERS: PCP Family Medicine; Visit Provider Physician Assistant
DX: Z51.81 Encounter for therapeutic drug level monitoring (principal); J45.40 Moderate persistent asthma, uncomplicated; Z91.09 Other allergy status, other than to drugs and biological substances; Z79.899 Other long term (current) drug therapy
CPT/HCPCS: 94060; 94726; 94729

== ENCOUNTER 2025-07-07 14:38 | Outpatient (CLI) | payer OTHER, SELFPAY ==
--- NOTE | ~2025-07-07 | XR_ITS ---
EXAMINATION: XR hand RT 2V DATE: 07/07/2025 14:49 INDICATION: Pain on the medial aspect of right hand. TECHNIQUE: 3 views of the right hand were obtained. COMPARISON: None. FINDINGS: No acute bony lesions of right hand are seen. Moderate degenerative changes of radiocarpal joint. Mild osteoarthritis of interphalangeal joints. Degenerative arthritis of first carpometacarpal joint of significant degree. IMPRESSION: 1. Moderate degenerative changes of radiocarpal joint. Significant degenerative changes of first carpometacarpal joint on the radial aspect of the wrist. 2. No radiographic evidence of rheumatoid arthritis.. Reviewed, dictated and finalized at location T. STRIAL CONTROLLER
== END 2025-07-07 14:39 | disposition home or self-care (01) ==
LOC: GOSHIMG 14:39
PROVIDERS: PCP Plastic Surgery; Visit Provider Nurse Practitioner Family
DX: M19.041 Primary osteoarthritis, right hand (principal)
CPT/HCPCS: 73120

== ENCOUNTER 2025-07-19 11:05 | Outpatient (CLI) | payer OTHER, SELFPAY ==
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
--- NOTE | ~2025-07-19 | XR_ITS ---
XR cervical spine min 6V Indication: Cervicalgia Comparison: None Findings: Grade 1 anterolisthesis of C4 on C5, no fracture, no subluxation with flexion and extension. Moderate to severe loss of disc height at C5-6 and C6-7 with narrowing of the foramina bilaterally. Soft tissues unremarkable Impression: No acute abnormality. Reviewed, dictated and finalized at location P. O AGENT Impression: No acute abnormality.
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
== END 2025-07-19 11:06 | disposition home or self-care (01) ==
PROVIDERS: PCP Family Medicine; Visit Provider Nurse Practitioner Family
DX: M54.2 Cervicalgia (principal); M54.50 Low back pain, unspecified
CPT/HCPCS: 72052; 72070; 72110